=== PATIENT | female | born 1965 | race Caucasian/White ===

== ENCOUNTER 2016-11-30 13:31 | Emergency (ER) | payer SELFPAY ==
[~2016-11-30] VITALS: Ht 165.1 cm; Wt 45.0 kg
[~2016-11-30 13:31] MED LIST: CEPH500C3 PO; PRED50 PO; XANA1TAB6 PO; ZITHTAB PO
[2016-11-30 13:33] VITALS: BP 109/80; PULSE 89; RESP 16; TEMP 98.9; O2SAT 99
--- NOTE | 2016-11-30 13:47 | PD ---
HPI Chief Complaint: Oral / Dental Pain or Problem Time Seen by Provider: 13:44 Travel History International Travel<30 days: No Contact w/Intl Traveler<30days: No Traveled to known affect area: No History of Present Illness HPI 51-year-old smoking female presents emergency Department with left upper jaw pain for the past week. Patient states she had a dental procedure 2 weeks ago with a #14 tooth was removed. She states approximately one week ago she's had developed worsening pain without fever, chills, or swelling. The pain is sensitive to hot and cold. It radiates across her upper jaw. She denies nausea, sore throat, difficulty swallowing, or ear pain. Pain is currently 8-9 out of 10. She has been trying [id number] medications without improvement. She is allergic to Grapefruit. PFSH Past Medical History Anxiety: Yes Depression: Yes Diabetes: No Diminished Hearing: No Fibromyalgia: Yes Kidney Stones: Yes ?: Not : 11 Para: 3 : 8 Past Surgical History Section: Yes (X 3) Genitourinary Surgery: Yes (CYSTOSCOPY WITH STENT PLACED) Gynecologic Surgery: Yes (c-sections) Social History Alcohol Use: Yes Tobacco Use: Yes Substance Use: No Allergies-Medications (Allergen,Severity, Reaction): Coded Allergies: grapefruit (Verified Allergy, Mild, Swelling, 11/30/16) Reported Meds & Prescriptions Reported Meds & Active Scripts Active Zithromax Z-Jamie (Azithromycin) 250 Mg Dspk 250 Mg PO DIRECTED 500 MG (2 tabs) day 1, then 1 tab days 2-5. Prednisone 50 Mg Tab 50 Mg PO DAILY Keflex (Cephalexin Monohydrate) 500 Mg Cap 500 Mg PO Q6 10 Days Reported Xanax 1 mg (Alprazolam) Alprazolam 1 mg Tab 2 Tab PO Q6H PRN Review of Systems Except as stated in HPI: all other systems reviewed are Neg General / Constitutional: No: Fever, Chills Eyes: No: Visual changes HENT: Positive: Dental Difficulties, No: Headaches, Sore Throat, Rhinitis, Rhinorrhea, Congestion, Nosebleed, Neck Stiffness, Neck Pain, Gingival Bleeding , Ear Discharge, Earache Cardiovascular: No: Chest Pain or Discomfort Respiratory: No: Shortness of Breath Gastrointestinal: No: Abdominal Pain Genitourinary: No: Dysuria Musculoskeletal: No: Pain Skin: No Rash Neurologic: No: Weakness Psychiatric: No: Depression Endocrine: No: Polydipsia Hematologic/Lymphatic: No: Easy Bruising Physical Exam Narrative GENERAL: Patient appears in moderate distress. SKIN: Warm and dry. Normal color. Normal turgor. No erythema. No rash. HEAD: Atraumatic. Normocephalic. No significant swelling noted. EYES: Pupils equal and round. No scleral icterus. No injection or drainage. ENT: No nasal bleeding or discharge. Mucous membranes pink and moist. Pharynx is clear. Airway is patent. Patient has poor dental health with multiple caries noted. There is no swelling of the gingiva or posterior pharynx. Airway is patent. NECK: Trachea midline. Supple without significant lymphadenopathy or tenderness. CARDIOVASCULAR: Regular rate and rhythm. No murmurs gallops or rubs appreciated RESPIRATORY: No accessory muscle use. Clear to auscultation. Breath sounds equal bilaterally. MUSCULOSKELETAL: Extremities without clubbing, cyanosis, or edema. No obvious deformities. NEUROLOGICAL: Awake and alert. No obvious cranial nerve deficits. Motor grossly within normal limits. Five out of 5 muscle strength in the arms and legs. Normal speech. PSYCHIATRIC: Appropriate mood and affect; insight and judgment normal. Data Data Last Documented VS Vital Signs Date Time Temp Pulse Resp B/P (MAP) Pulse Ox O2 Delivery O2 Flow Rate FiO2 11/30/16 13:33 98.9 89 16 109/80 (90) 99 MDM Medical Decision Making Medical Screen Exam Complete: Yes Emergency Medical Condition: Yes Differential Diagnosis Dry socket. Dental pain. Nerve pain. Narrative Course Patient is given Toradol 60 mg IM. Patient is given penicillin V, 500 mg now and one every 6 hours for 10 days. Patient is given ibuprofen 600 mg 4 times a day #40. Patient is given acetaminophen 500 mg 2 tabs every 6 hours #60. Patient is given Magic mouthwash every 2 hours as needed #120 mL with 2 refills. Patient to follow-up with dental resources as soon as possible. Patient can return to the ED as symptoms warrant. Diagnosis Primary Impression: Pain, dental Referrals: Dentist Patient Instructions: Dental Abscess (ED), Dental Caries (DC), General Instructions Additional Instructions: Patient is given Toradol 60 mg IM. Patient is given penicillin V, 500 mg now and one every 6 hours for 10 days. Patient is given ibuprofen 600 mg 4 times a day #40. Patient is given acetaminophen 500 mg 2 tabs every 6 hours #60. Patient is given Magic mouthwash every 2 hours as needed #120 mL with 2 refills. Patient to follow-up with dental resources as soon as possible. Patient can return to the ED as symptoms warrant. Med/Other Pt SpecificInfo: Prescription(s) given Disposition: 01 DISCHARGE HOME Condition: Stable Bernard Mccray Nov 30, 2016 13:47
[2016-11-30] MEDS ORDERED: PENICILLIN V POTASSIUM 500 MG TAB PO ONE (14:00)
[2016-11-30] MEDS ORDERED: KETOROLAC TROMETHAMINE 60 MG/2 ML (IM) VIAL IM ONE (14:00)
[2016-11-30] MEDS ORDERED: MAGICADU2 SWISH-SWAL (14:05)
[2016-11-30] MEDS ORDERED: PENI500T PO (14:05)
[2016-11-30] MEDS ORDERED: MAPA500T13 PO (14:05)
[2016-11-30] MEDS ORDERED: IBUP-232 PO (14:05)
== END 2016-11-30 14:20 | disposition home or self-care (01) ==
LOC: NEPK 13:31
DX: K08.89 Other specified disorders of teeth and supporting structures (principal); F41.9 Anxiety disorder, unspecified; F32.9 Major depressive disorder, single episode, unspecified; M79.7 Fibromyalgia; Z87.442 Personal history of urinary calculi; F17.200 Nicotine dependence, unspecified, uncomplicated; Z79.899 Other long term (current) drug therapy
CPT/HCPCS: 96372; 99284; J1885

== ENCOUNTER 2017-01-29 12:02 | Emergency (ER) | payer SELFPAY ==
[~2017-01-29 12:02] MED LIST changes: +IBUP-232 PO; +MAGICADU2 SWISH-SWAL; +MAPA500T13 PO; +PENI500T PO
[2017-01-29 12:14] VITALS: BP 127/86; PULSE 100; RESP 22; TEMP 98.2; O2SAT 100
[2017-01-29 12:17] VITALS: BP 127/86; PULSE 103; RESP 22; TEMP 98.2; O2SAT 100
[2017-01-29] MEDS ORDERED: SODIUM CHLOR 0.9% 1000 ML INJ 1,000 ML IV SCH (12:21)
[2017-01-29] MEDS ORDERED: XANA1TAB2 PO (12:21)
[2017-01-29 12:25] VITALS: O2SAT 100
[2017-01-29] MEDS ORDERED: SODIUM CHLORIDE 0.9% FLUSH 10 ML FLUSH IV FLUSH PRN (12:30)
[2017-01-29] MEDS ORDERED: KETOROLAC TROMETHAMINE 30 MG/ML (IVP) VIAL IVP ONE (12:30)
--- NOTE | 2017-01-29 12:30 | PD ---
HPI . Abdominal pain Chief Complaint: Abdominal Pain Time Seen by Provider: 12:25 Travel History International Travel<30 days: No Contact w/Intl Traveler<30days: No Traveled to known affect area: No History of Present Illness HPI 52-year-old female presents emergency department for evaluation of abdominal pain. Patient arrives via EMS for evaluation. She states the pain started 6 months ago. Patient is crying and anxious and states that her boyfriend has been battling pancreatic cancer and she was unable to get evaluated due to the extensive time it took to provide care for him. He of the [employer]. She states accompanied with abdominal pain she's had alternating diarrhea and constipation. Patient states that there has been some blood in her stool when she's had diarrhea. She believes that it is related to straining when she is constipated causing hemorrhoids. Patient denies any major medical history 1 hepatitis C and anxiety. Patient takes Xanax daily but no other medication. She denies any fever, chills, malaise, shortness breath, chest pain, headache. Patient states she feels lightheaded and dizzy intermittently. Patient states she had a syncopal episode a couple weeks ago but didn't seek care at that time because her boyfriend was still alive and she needed to take care of him. PFSH Past Medical History Anxiety: Yes Depression: Yes Diabetes: No Diminished Hearing: No Fibromyalgia: Yes Kidney Stones: Yes ?: Not : 11 Para: 3 : 8 Past Surgical History Section: Yes (X 3) Genitourinary Surgery: Yes (CYSTOSCOPY WITH STENT PLACED) Gynecologic Surgery: Yes (c-sections) Social History Alcohol Use: Yes Tobacco Use: Yes Substance Use: No Allergies-Medications (Allergen,Severity, Reaction): Coded Allergies: grapefruit (Verified Allergy, Mild, Swelling, 01/29/17) Reported Meds & Prescriptions Reported Meds & Active Scripts Active Bentyl (Dicyclomine HCl) 10 Mg Cap 10 Mg PO TID PRN Zofran Odt (Ondansetron Odt) 4 Mg Tab 4 Mg SL Q6HR PRN Mapap Extra Strength (Acetaminophen) 500 Mg Tab 1,000 Mg PO Q6HR PRN Ibuprofen 600 Mg Tab 600 Mg PO Q6H PRN Prednisone 50 Mg Tab 50 Mg PO DAILY Reported Xanax (Alprazolam) 1 Mg Tab 1 Mg PO Q8H PRN Review of Systems Except as stated in HPI: all other systems reviewed are Neg Physical Exam Narrative GENERAL: Well-nourished, well-developed 52-year-old female patient that is crying and anxious. No acute respiratory distress. SKIN: Focused skin assessment warm/dry. HEAD: Normocephalic. Atraumatic. EYES: No scleral icterus. No injection or drainage. NECK: Supple, trachea midline. No JVD or lymphadenopathy. CARDIOVASCULAR: Regular rate and rhythm without murmurs, gallops, or rubs. RESPIRATORY: Breath sounds equal bilaterally. No accessory muscle use. GASTROINTESTINAL: Abdomen soft, nondistended, left lower quadrant tenderness with palpation. MUSCULOSKELETAL: No cyanosis, or edema. BACK: Nontender without obvious deformity. No CVA tenderness. Data Data Last Documented VS Vital Signs Date Time Temp Pulse Resp B/P (MAP) Pulse Ox O2 Delivery O2 Flow Rate FiO2 01/29/17 14:52 88 18 168/72 (104) 98 01/29/17 12:25 Room Air 01/29/17 12:17 98.2 Orders Orders Complete Blood Count With Diff (01/29/17 12:21) Comprehensive Metabolic Panel (01/29/17 12:21) Lipase (01/29/17 12:21) Prothrombin Time / Inr (Pt) (01/29/17 12:21) Act Partial Throm Time (Ptt) (01/29/17 12:21) Urinalysis - C+S If Indicated (01/29/17 12:21) Ct Abd/Pel W Iv Contrast(Rout) (01/29/17 12:21) Iv Access Insert/Monitor (01/29/17 12:21) Ecg Monitoring (01/29/17 12:21) Oximetry (01/29/17 12:21) Sodium Chlor 0.9% 1000 Ml Inj (Ns 1000 M (01/29/17 12:21) Sodium Chloride 0.9% Flush (Ns Flush) (01/29/17 12:30) Electrocardiogram (01/29/17 12:21) Ketorolac Inj (Toradol Inj) (01/29/17 12:30) Ed Urine Pregnancytest Poc (01/29/17 12:21) Ondansetron Inj (Zofran Inj) (01/29/17 12:45) Iohexol 350 Inj (Omnipaque 350 Inj) (01/29/17 13:29) Ed Discharge Order (01/29/17 14:33) Labs Laboratory Tests Test 01/29/17 12:30 01/29/17 12:50 White Blood Count 7.7 TH/MM3 Red Blood Count 5.05 MIL/MM3 Hemoglobin 15.0 GM/DL Hematocrit 44.4 % Mean Corpuscular Volume 87.9 FL Mean Corpuscular Hemoglobin 29.8 PG Mean Corpuscular Hemoglobin Concent 33.8 % Red Cell Distribution Width 13.4 % Platelet Count 241 TH/MM3 Mean Platelet Volume 7.5 FL Neutrophils (%) (Auto) 65.0 % Lymphocytes (%) (Auto) 25.5 % Monocytes (%) (Auto) 8.3 % Eosinophils (%) (Auto) 0.8 % Basophils (%) (Auto) 0.4 % Neutrophils # (Auto) 5.0 TH/MM3 Lymphocytes # (Auto) 2.0 TH/MM3 Monocytes # (Auto) 0.6 TH/MM3 Eosinophils # (Auto) 0.1 TH/MM3 Basophils # (Auto) 0.0 TH/MM3 CBC Comment DIFF FINAL Differential Comment Prothrombin Time 9.7 SEC Prothromb Time International Ratio 1.0 RATIO Activated Partial Thromboplast Time 25.1 SEC Blood Urea Nitrogen 11 MG/DL Creatinine 0.66 MG/DL Random Glucose 72 MG/DL Total Protein 7.9 GM/DL Albumin 3.6 GM/DL Calcium Level 9.5 MG/DL Alkaline Phosphatase 86 U/L Aspartate Amino Transf (AST/SGOT) 18 U/L Alanine Aminotransferase (ALT/SGPT) 19 U/L Total Bilirubin 0.6 MG/DL Sodium Level 136 MEQ/L Potassium Level 4.1 MEQ/L Chloride Level 102 MEQ/L Carbon Dioxide Level 27.1 MEQ/L Anion Gap 7 MEQ/L Estimat Glomerular Filtration Rate 95 ML/MIN Lipase 79 U/L Urine Color STRAW Urine Turbidity CLEAR Urine pH 7.0 Urine Specific Parrish 1.001 Urine Protein NEG mg/dL Urine Glucose (UA) NEG mg/dL Urine Ketones NEG mg/dL Urine Occult Blood NEG Urine Nitrite NEG Urine Bilirubin NEG Urine Urobilinogen LESS THAN 2.0 MG/DL Urine Leukocyte Esterase NEG Urine Squamous Epithelial Cells <1 /hpf Microscopic Urinalysis Comment CULT NOT INDICATED MDM Medical Decision Making Medical Screen Exam Complete: Yes Emergency Medical Condition: Yes Differential Diagnosis Differential diagnosis include but not limited to IBS, gastritis, malignancy, stress Narrative Course 52 year old female presents to the emergency department via EMS for evaluation of abdominal pain and alternating constipation/diarrhea x 6 months. CBC, CMP, lipase, PT/INR, UA, EKG, abdominal CT ordered and pending. POC preg test ordered and pending. 1L NS bolus, 4mg Zofran and 30mg Toradol IV ordered. Blood work is unremarkable. Abd/Pelvis CT is negative except for probable uterine fibroid. POC preg test negative. Patient is discharged home with prescription for Zofran and Bentyl and instructions to return to the emergency department with any worsening condition but otherwise follow up with primary care. Last Impressions Abdomen/Pelvis CT 01/29/17 1221 Signed Impressions: Service Date/Time: Sunday, January 29, 2017 13:28 - CONCLUSION: Probable fibroid uterus otherwise negative. I don't see inflammatory changes. Reyes Rogel MD FACR Laboratory Tests Test 01/29/17 12:30 01/29/17 12:50 White Blood Count 7.7 TH/MM3 Red Blood Count 5.05 MIL/MM3 Hemoglobin 15.0 GM/DL Hematocrit 44.4 % Mean Corpuscular Volume 87.9 FL Mean Corpuscular Hemoglobin 29.8 PG Mean Corpuscular Hemoglobin Concent 33.8 % Red Cell Distribution Width 13.4 % Platelet Count 241 TH/MM3 Mean Platelet Volume 7.5 FL Neutrophils (%) (Auto) 65.0 % Lymphocytes (%) (Auto) 25.5 % Monocytes (%) (Auto) 8.3 % Eosinophils (%) (Auto) 0.8 % Basophils (%) (Auto) 0.4 % Neutrophils # (Auto) 5.0 TH/MM3 Lymphocytes # (Auto) 2.0 TH/MM3 Monocytes # (Auto) 0.6 TH/MM3 Eosinophils # (Auto) 0.1 TH/MM3 Basophils # (Auto) 0.0 TH/MM3 CBC Comment DIFF FINAL Differential Comment Prothrombin Time 9.7 SEC Prothromb Time International Ratio 1.0 RATIO Activated Partial Thromboplast Time 25.1 SEC Blood Urea Nitrogen 11 MG/DL Creatinine 0.66 MG/DL Random Glucose 72 MG/DL Total Protein 7.9 GM/DL Albumin 3.6 GM/DL Calcium Level 9.5 MG/DL Alkaline Phosphatase 86 U/L Aspartate Amino Transf (AST/SGOT) 18 U/L Alanine Aminotransferase (ALT/SGPT) 19 U/L Total Bilirubin 0.6 MG/DL Sodium Level 136 MEQ/L Potassium Level 4.1 MEQ/L Chloride Level 102 MEQ/L Carbon Dioxide Level 27.1 MEQ/L Anion Gap 7 MEQ/L Estimat Glomerular Filtration Rate 95 ML/MIN Lipase 79 U/L Urine Color STRAW Urine Turbidity CLEAR Urine pH 7.0 Urine Specific Parrish 1.001 Urine Protein NEG mg/dL Urine Glucose (UA) NEG mg/dL Urine Ketones NEG mg/dL Urine Occult Blood NEG Urine Nitrite NEG Urine Bilirubin NEG Urine Urobilinogen LESS THAN 2.0 MG/DL Urine Leukocyte Esterase NEG Urine Squamous Epithelial Cells <1 /hpf Microscopic Urinalysis Comment CULT NOT INDICATED Diagnosis Primary Impression: Abdominal pain Qualified Codes: R10.9 - Unspecified abdominal pain Referrals: Primary Care Physician Patient Instructions: Abdominal Pain (ED), General Instructions Additional Instructions: Please return to emergency department if your symptoms return or worsen. Follow up with your primary care provider. Take medications as prescribed. Med/Other Pt SpecificInfo: Prescription(s) given Scripts Dicyclomine (Bentyl) 10 Mg Cap 10 MG PO TID Y for Bowel Management, #15 CAP 0 Refills Prov: Sherlyn Knowles 01/29/17 Ondansetron Odt (Zofran Odt) 4 Mg Tab 4 MG SL Q6HR Y for Nausea/Vomiting, #10 TAB 0 Refills Prov: Sherlyn Knowles 01/29/17 Disposition: 01 DISCHARGE HOME Condition: Stable Sherlyn Knowles Jan 29, 2017 12:30
[2017-01-29] MEDS ORDERED: ONDANSETRON HCL 4 MG/2 ML VIAL IV PUSH ONE (12:45)
[2017-01-29] MEDS ORDERED: IOHEXOL 350 MG/ML 10 ML VIAL (for RAD DIAG) IVCONTRAST ONE (13:29)
[2017-01-29 13:32] LABS: BLOOD, URINE NEG (NEG); GLUCOSE,URINE NEG (NEG); KETONE, URINE NEG (NEG); NITRITE,URINE NEG (NEG); SQUAMOUS EPITHELIAL CELL URINE <1 /hpf (0-5)
[2017-01-29 13:33] LABS: BASOPHIL % 0.4 % (0.0-2.0); EOSINOPHIL # 0.1 TH/MM3 (0-0.4); EOSINOPHIL % 0.8 % (0.0-4.0); HEMATOCRIT 44.4 % (35.0-46.0); HEMO FLAGS DIFF FINAL; LYMPH % 25.5 % (9.0-44.0); MEAN CELL VOLUME 87.9 FL (80.0-100.0); MEAN CORPUSCULAR HEMOGLOBIN 29.8 PG (27.0-34.0); MEAN CORPUSCULAR HGB CONC 33.8 % (32.0-36.0); MONO % 8.3 % (0.0-8.0); PLATELET COUNT 241 TH/MM3 (150-450); RED BLOOD COUNT 5.05 MIL/MM3 (4.00-5.30); RED CELL DISTRIBUTION WIDTH 13.4 % (11.6-17.2); WHITE BLOOD COUNT 7.7 TH/MM3 (4.0-11.0)
[2017-01-29 13:35] LABS: COMMENT (UR) CULT NOT INDICATED; CULTURE IF INDICATED CULT NOT INDICATED; URINE COLOR STRAW (YELLW/STRAW)
[2017-01-29 13:42] LABS: APTT (PATIENT) 25.1 SEC (24.3-30.1); PROTHROMBIN TIME - PATIENT 9.7 SEC (9.8-11.6)
[2017-01-29 13:49] VITALS: RESP 18
--- NOTE | 2017-01-29 13:49 | RADRPT ---
EXAM DATE/TIME: 01/29/2017 13:28 [facility] COMPARISON: No previous studies available for comparison. INDICATIONS : Lower abdomen pain IV CONTRAST: 96 cc Omnipaque 350 (iohexol) IV ORAL CONTRAST: No oral contrast ingested. RADIATION DOSE: 4.51 CTDIvol (mGy) MEDICAL HISTORY : Hepatitis C. SURGICAL HISTORY : section. ENCOUNTER: Initial ACUITY: 4 - 6 months PAIN SCALE: 10/10 LOCATION: lower quadrant TECHNIQUE: Volumetric scanning of the abdomen and pelvis was performed. Using automated exposure control and ad justment of the mA and/or kV according to patient size, radiation dose was kept as low as reasonably achievable to obtain optimal diagnostic quality images. DICOM format image data is available electro nically for review and comparison. FINDINGS: Mild emphysematous changes both lung base is The liver, gallbladder and pancreas are unremarkable. Spleen, adrenals and kidneys are unremarkable There is no ascites. There is no adenopathy. In the pelvis the uterus is prominent suggesting fibroids. The bladder is prominent. Region of the cecum and terminal ileum unremarkable There is no evidence for diverticulitis or inflammatory changes There is no free fluid CONCLUSION: Probable fibroid uterus otherwise negative. I don't see inflammatory changes. Reyes Rogel MD FACR on January 29, 2017 at 13:45 Board Certified Radiologist. This report was verified electronically.
[2017-01-29 13:59] LABS: ALT (GPT) 19 U/L (10-53); ANION GAP 7 MEQ/L (5-15); AST (GOT) 18 U/L (15-37); BICARBONATE 27.1 MEQ/L (21.0-32.0); BLOOD UREA NITROGEN 11 MG/DL (7-18); CHLORIDE 102 MEQ/L (98-107); GLOMERULAR FILTRATION RATE 95 ML/MIN (>89); POTASSIUM 4.1 MEQ/L (3.5-5.1); SODIUM (NA) 136 MEQ/L (136-145)
[2017-01-29 14:00] LABS: ALKALINE PHOSPHATASE 86 U/L (45-117); TOTAL BILIRUBIN ADULT 0.6 MG/DL (0.2-1.0)
[2017-01-29] MEDS ORDERED: ZOFR4TAB3 SL (14:33)
[2017-01-29] MEDS ORDERED: DICY10 PO (14:33)
[2017-01-29 14:52] VITALS: BP 168/72
--- NOTE | 2017-01-29 14:56 | PD ---
Data Data Last Documented VS Vital Signs Date Time Temp Pulse Resp B/P (MAP) Pulse Ox O2 Delivery O2 Flow Rate FiO2 01/29/17 14:52 88 18 168/72 (104) 98 01/29/17 12:25 Room Air 01/29/17 12:17 98.2 Orders Orders Complete Blood Count With Diff (01/29/17 12:21) Comprehensive Metabolic Panel (01/29/17 12:21) Lipase (01/29/17 12:21) Prothrombin Time / Inr (Pt) (01/29/17 12:21) Act Partial Throm Time (Ptt) (01/29/17 12:21) Urinalysis - C+S If Indicated (01/29/17 12:21) Ct Abd/Pel W Iv Contrast(Rout) (01/29/17 12:21) Iv Access Insert/Monitor (01/29/17 12:21) Ecg Monitoring (01/29/17 12:21) Oximetry (01/29/17 12:21) Sodium Chlor 0.9% 1000 Ml Inj (Ns 1000 M (01/29/17 12:21) Sodium Chloride 0.9% Flush (Ns Flush) (01/29/17 12:30) Electrocardiogram (01/29/17 12:21) Ketorolac Inj (Toradol Inj) (01/29/17 12:30) Ed Urine Pregnancytest Poc (01/29/17 12:21) Ondansetron Inj (Zofran Inj) (01/29/17 12:45) Iohexol 350 Inj (Omnipaque 350 Inj) (01/29/17 13:29) Ed Discharge Order (01/29/17 14:33) Labs Laboratory Tests Test 01/29/17 12:30 01/29/17 12:50 White Blood Count 7.7 TH/MM3 Red Blood Count 5.05 MIL/MM3 Hemoglobin 15.0 GM/DL Hematocrit 44.4 % Mean Corpuscular Volume 87.9 FL Mean Corpuscular Hemoglobin 29.8 PG Mean Corpuscular Hemoglobin Concent 33.8 % Red Cell Distribution Width 13.4 % Platelet Count 241 TH/MM3 Mean Platelet Volume 7.5 FL Neutrophils (%) (Auto) 65.0 % Lymphocytes (%) (Auto) 25.5 % Monocytes (%) (Auto) 8.3 % Eosinophils (%) (Auto) 0.8 % Basophils (%) (Auto) 0.4 % Neutrophils # (Auto) 5.0 TH/MM3 Lymphocytes # (Auto) 2.0 TH/MM3 Monocytes # (Auto) 0.6 TH/MM3 Eosinophils # (Auto) 0.1 TH/MM3 Basophils # (Auto) 0.0 TH/MM3 CBC Comment DIFF FINAL Differential Comment Prothrombin Time 9.7 SEC Prothromb Time International Ratio 1.0 RATIO Activated Partial Thromboplast Time 25.1 SEC Blood Urea Nitrogen 11 MG/DL Creatinine 0.66 MG/DL Random Glucose 72 MG/DL Total Protein 7.9 GM/DL Albumin 3.6 GM/DL Calcium Level 9.5 MG/DL Alkaline Phosphatase 86 U/L Aspartate Amino Transf (AST/SGOT) 18 U/L Alanine Aminotransferase (ALT/SGPT) 19 U/L Total Bilirubin 0.6 MG/DL Sodium Level 136 MEQ/L Potassium Level 4.1 MEQ/L Chloride Level 102 MEQ/L Carbon Dioxide Level 27.1 MEQ/L Anion Gap 7 MEQ/L Estimat Glomerular Filtration Rate 95 ML/MIN Lipase 79 U/L Urine Color STRAW Urine Turbidity CLEAR Urine pH 7.0 Urine Specific [place] 1.001 Urine Protein NEG mg/dL Urine Glucose (UA) NEG mg/dL Urine Ketones NEG mg/dL Urine Occult Blood NEG Urine Nitrite NEG Urine Bilirubin NEG Urine Urobilinogen LESS THAN 2.0 MG/DL Urine Leukocyte Esterase NEG Urine Squamous Epithelial Cells <1 /hpf Microscopic Urinalysis Comment CULT NOT INDICATED MDM Supervised Visit with MORGAN: Yes Narrative Course The history, exam, and medical decision-making in the associated mid-level provider note were completed with my assistance. I reviewed and agree with the findings presented. I attest that I had a [id number] encounter with the patient on the same day, and personally performed and documented my assessment and findings in the medical record. *My assessment and Findings: 52 year-old woman, patient with months worth of abdominal pain and intermittent constipation and diarrhea alternating, multiple social stressors, no history of abdominal surgeries suffer C-sections, mild diffuse abdominal tenderness. No rebound or guarding. CT scans in the results unremarkable. Recommend outpatient follow-up and supportive treatment. Diagnosis Primary Impression: Abdominal pain Referrals: Primary Care Physician Patient Instructions: General Instructions, Abdominal Pain (ED) Departure Forms: Tests/Procedures Additional Instruction: Please return to emergency department if your symptoms return or worsen. Follow up with your primary care provider. Take medications as prescribed. Scripts Dicyclomine (Bentyl) 10 Mg Cap 10 MG PO TID Y for Bowel Management, #15 CAP 0 Refills Prov: Sherlyn Knowles 01/29/17 Ondansetron Odt (Zofran Odt) 4 Mg Tab 4 MG SL Q6HR Y for Nausea/Vomiting, #10 TAB 0 Refills Prov: Sherlyn Knowles 01/29/17 Disposition: 01 DISCHARGE HOME Condition: Stable David Rea MD Jan 29, 2017 14:56
--- NOTE | 2017-01-29 21:59 | EKG ---
Date Performed: 01/29/2017 Time Performed: 12:55:05 PTAGE: 52 years EKG: Sinus rhythm POSSIBLE RIGHT VENTRICULAR CONDUCTION DELAY BORDERLINE ECG NO PREVIOUS TRACING DOCTOR: Rea Ayers Interpretating Date/Time 01/29/2017 21:57:47
== END 2017-01-29 14:53 | disposition home or self-care (01) ==
LOC: NEPC 12:02
DX: R10.9 Unspecified abdominal pain (principal); K59.00 Constipation, unspecified; R19.7 Diarrhea, unspecified; R42 Dizziness and giddiness; F41.9 Anxiety disorder, unspecified; F32.9 Major depressive disorder, single episode, unspecified; M79.7 Fibromyalgia; Z87.442 Personal history of urinary calculi; Z72.0 Tobacco use
CPT/HCPCS: 74177; 80053; 81001; 83690; 84703; 85025; 85610; 85730; 93005; 96361; 96374; 96375; 99285; J1885; J2405; J7030; Q9967

== ENCOUNTER 2017-07-20 11:45 | Emergency (ER) | payer SELFPAY ==
[~2017-07-20 11:45] MED LIST changes: -CEPH500C3 PO; -IBUP-232 PO; -MAGICADU2 SWISH-SWAL; -MAPA500T13 PO; -PENI500T PO; -PRED50 PO; +XANA1TAB2 PO; -XANA1TAB6 PO; -ZITHTAB PO
[2017-07-20 11:48] VITALS: BP 107/50; PULSE 103; RESP 20; TEMP 98.6; O2SAT 98
[2017-07-20] MEDS ORDERED: BACT800T5 PO (12:27)
[2017-07-20] MEDS ORDERED: SULFAMETHOXAZOLE-TRIMETHOPRIM DS 800-160 MG TAB PO ONE (12:30)
--- NOTE | 2017-07-20 12:35 | PD ---
HPI Chief Complaint: Skin Problem Time Seen by Provider: 12:19 Travel History International Travel<30 days: No Contact w/Intl Traveler<30days: No Traveled to known affect area: No History of Present Illness HPI 52-year-old female presents emergency department for evaluation of a lesion to her left buttocks. Says that she noticed this 4 days ago and thought this was a spider bite. She does not recall a spider but was concerned because of the "hole" in the lesion. She denies fevers or chills. Says the area is tender to palpation, no radiation of pain. Denies exudate. She has no other complaints today. PFSH Past Medical History Anxiety: Yes Depression: Yes Diabetes: No Diminished Hearing: No Fibromyalgia: Yes Kidney Stones: Yes ?: Not Menopausal: Yes : 11 Para: 3 : 8 Past Surgical History Section: Yes (X 3) Genitourinary Surgery: Yes (CYSTOSCOPY WITH STENT PLACED) Gynecologic Surgery: Yes (c-sections) Social History Alcohol Use: No Tobacco Use: Yes (1 PPD) Substance Use: No Allergies-Medications (Allergen,Severity, Reaction): Coded Allergies: grapefruit (Verified Allergy, Mild, Swelling, 03/24/17) Reported Meds & Prescriptions Reported Meds & Active Scripts Active Bactrim DS (Sulfamethoxazole-Trimethoprim) 800-160 Mg Tab 1 Tab PO BID Reported Xanax (Alprazolam) 1 Mg Tab 1 Mg PO Q8H PRN Review of Systems Except as stated in HPI: all other systems reviewed are Neg Physical Exam Narrative GENERAL: Well-developed, well-nourished, slightly anxious SKIN: Focused skin assessment warm/dry. Left buttocks-area of induration approximately 5 mm with extension of erythema approximately 1 cm, mildly tender palpation. Central puncta. No exudate. No lymph idiopathic spread. HEAD: Atraumatic. Normocephalic. EYES: No scleral icterus. No injection or drainage. ENT: No nasal bleeding or discharge. Mucous membranes pink and moist. NECK: Trachea midline. No JVD. CARDIOVASCULAR: Regular rate and rhythm. No murmur appreciated. RESPIRATORY: No accessory muscle use. Clear to auscultation. Breath sounds equal bilaterally. MUSCULOSKELETAL: No obvious deformities. No clubbing. No cyanosis. No edema. NEUROLOGICAL: Awake and alert. No obvious cranial nerve deficits. Motor grossly within normal limits. Normal speech. PSYCHIATRIC: Appropriate mood and affect; insight and judgment normal. Data Data Last Documented VS Vital Signs Date Time Temp Pulse Resp B/P (MAP) Pulse Ox O2 Delivery O2 Flow Rate FiO2 07/20/17 11:48 98.6 103 20 107/50 (69) 98 Orders Orders Sulfamet-Trimeth Ds 800-160 Mg (Bactrim (07/20/17 12:30) Ed Discharge Order (07/20/17 12:49) [facility] Medical Decision Making Medical Screen Exam Complete: Yes Emergency Medical Condition: Yes Differential Diagnosis Left buttock cellulitis, abscess, erysipelas, folliculitis Narrative Course 52-year-old female presents emergency department for evaluation of a lesion to her left buttocks. Says that she noticed this 4 days ago and thought this was a spider bite. She does not recall a spider but was concerned because of the "hole" in the lesion. She denies fevers or chills. Says the area is tender to palpation, no radiation of pain. Denies exudate. She has no other complaints today. Vital signs are stable. Physical exam findings most consistent with folliculitis versus abscess versus cellulitis. The area is rather indurated and I do not feel any areas of fluctuance amenable to an I&D. Patient will be discharged with Bactrim. Her first dose of Bactrim administered emergency department today. Warm compresses. She is advised to follow-up with primary care physician. Return for worsening or persistent symptoms. Diagnosis Primary Impression: Cellulitis and abscess of buttock Referrals: [facility] Primary Care Physician Patient Instructions: Cellulitis (ED), General Instructions Additional Instructions: Use warm compresses 4 times daily for 15 minutes at a time. Take all antibiotics as prescribed. If the wound worsens over the next 2 days return to the emergency department for evaluation. Follow-up with the primary care physician within 2-3 days. Scripts Sulfamethoxazole-Trimethoprim (Bactrim DS) 800-160 Mg Tab 1 TAB PO BID for Infection, #14 TAB 0 Refills Prov: David Rea MD 07/20/17 Disposition: 01 DISCHARGE HOME Condition: Stable Jodie Stone July 20, 2017 12:35
== END 2017-07-20 13:04 | disposition home or self-care (01) ==
LOC: NEPD 11:45
DX: L02.31 Cutaneous abscess of buttock (principal)
CPT/HCPCS: 99283

== ENCOUNTER 2017-07-22 06:04 | Emergency (ER) | payer SELFPAY ==
[~2017-07-22] VITALS: Ht 172.7 cm; Wt 44.0 kg
[~2017-07-22 06:04] MED LIST changes: +BACT800T5 PO
[2017-07-22 06:16] VITALS: BP 99/55; PULSE 89; RESP 20; TEMP 97.7; O2SAT 96
--- NOTE | 2017-07-22 07:16 | PD ---
HPI Chief Complaint: Skin Problem Time Seen by Provider: 06:58 Travel History International Travel<30 days: No Contact w/Intl Traveler<30days: No Traveled to known affect area: No History of Present Illness HPI 52y anxious female returns to the emergency department for evaluation of a lesion to the left buttocks. Says that the area has become dark in color and remains painful so she decided to return for concern of it being a spider bite. Says she has been taking Bactrim as directed. She denies fevers or chills. Patient again requests me to open up the area to determine whether or not there is pus. The area is TTP, moderate in severity, nonradiating. PFSH Past Medical History Anxiety: Yes Depression: Yes Diabetes: No Diminished Hearing: No Fibromyalgia: Yes Kidney Stones: Yes ?: Not LMP: 2015 Menopausal: Yes : 11 Para: 3 : 8 Past Surgical History Section: Yes (X 3) Genitourinary Surgery: Yes (CYSTOSCOPY WITH STENT PLACED) Gynecologic Surgery: Yes (c-sections) Social History Alcohol Use: No Tobacco Use: Yes (1 PPD) Substance Use: No Allergies-Medications (Allergen,Severity, Reaction): Coded Allergies: grapefruit (Verified Allergy, Mild, Swelling, 03/24/17) Reported Meds & Prescriptions Reported Meds & Active Scripts Active Penicillin V Potassium 500 Mg Tab 500 Mg PO Q8H 7 Days Bactrim DS (Sulfamethoxazole-Trimethoprim) 800-160 Mg Tab 1 Tab PO BID Reported Xanax (Alprazolam) 1 Mg Tab 1 Mg PO Q8H PRN Review of Systems Except as stated in HPI: all other systems reviewed are Neg Physical Exam Narrative GENERAL: Well-nourished, well-developed patient, in NAD SKIN: Focused skin assessment warm/dry. No rashes or lesions. left buttocks- area of erythema with central induration with purpura colored central area. Area continues to be indurated without any fluctuance. HEAD: Normocephalic. Atraumatic. EYES: No scleral icterus. No injection or drainage. NECK: Supple, trachea midline. No JVD or lymphadenopathy. No meningismus. CARDIOVASCULAR: Regular rate and rhythm without murmurs, gallops, or rubs. RESPIRATORY: Breath sounds equal bilaterally. No accessory muscle use. No wheezes, rales, or rhonchi MUSCULOSKELETAL: No cyanosis, or edema. BACK: Nontender without obvious deformity. No CVA tenderness. Data Data Last Documented VS Vital Signs Date Time Temp Pulse Resp B/P (MAP) Pulse Ox O2 Delivery O2 Flow Rate FiO2 07/22/17 06:16 97.7 89 20 99/55 (70) 96 Orders Orders Ed Discharge Order (07/22/17 07:44) MDM Medical Decision Making Medical Screen Exam Complete: Yes Emergency Medical Condition: Yes Differential Diagnosis Abscess, erysipelas, cellulitis Narrative Course 52-year-old female presents emergency department for the second time evaluation of the lesion to her left buttocks. Patient says that the lesion has developed darkness in the central area and continues to be painful. She denies spread of the erythema. I actually saw this patient's upon initial presentation and the change from the initial presentation to now would be the darkening of the central area. There is still induration. No extension of erythema compared to previous exam. We discussed the risks versus benefits of incision and drainage versus needle aspiration. Advised that it was not indicated because the area was hard and I did not feel any areas of fluctuance. I once again reassured the patient. I once again gave her instructions regarding care. Patient is to continue Bactrim. Patient says she is unable to afford medication unless it is free. Will prescribe penicillin. Advised her to follow-up with [facility] for her care. Diagnosis Primary Impression: Abscess Referrals: [facility] [address] Additional Instructions: Take all medications as prescribed. Continue Bactrim. Start Keflex. Use warm compresses or warm rags 3-4 times daily for 15 minutes at a time to reduce the swelling and redness. Scripts Penicillin V Potassium (Penicillin V Potassium) 500 Mg Tab 500 MG PO Q8H for Infection for 7 Days, #21 TAB 0 Refills Prov: Jerome Blair MD 07/22/17 Disposition: 01 DISCHARGE HOME Condition: Stable Jodie Stone July 22, 2017 07:16
[2017-07-22] MEDS ORDERED: PENI500T PO (07:44)
== END 2017-07-22 07:54 | disposition home or self-care (01) ==
LOC: NEPD 06:04
DX: L02.31 Cutaneous abscess of buttock (principal); F41.9 Anxiety disorder, unspecified; F32.9 Major depressive disorder, single episode, unspecified; M79.7 Fibromyalgia; Z87.442 Personal history of urinary calculi; F17.200 Nicotine dependence, unspecified, uncomplicated; Z79.899 Other long term (current) drug therapy
CPT/HCPCS: 99281

== ENCOUNTER 2017-08-09 12:23 | Emergency (ER) | payer SELFPAY ==
[~2017-08-09] VITALS: Ht 165.1 cm; Wt 50.0 kg
[~2017-08-09 12:23] MED LIST changes: +PENI500T PO
[2017-08-09 12:34] VITALS: BP 116/73; PULSE 94; RESP 20; TEMP 97.2; O2SAT 99
--- NOTE | 2017-08-09 13:29 | PD ---
HPI Chief Complaint: ENT Complaint Time Seen by Provider: 13:10 Travel History International Travel<30 days: No Contact w/Intl Traveler<30days: No Traveled to known affect area: No History of Present Illness HPI Is a 52-year-old woman who presents to the emergency department complaining of pain in her throat painful swallowing and fevers and chills ongoing for couple days. She states symptoms started fairly abruptly 3 nights ago. Symptoms been persistent. She denies cough cold or other associated symptoms. She does smoke. Denies any history of problems prior to this. No other complaints. History Past Medical History Narrative Medical Anxiety depression Fibromyalgia Menopausal: Yes : 11 Para: 3 Social History Alcohol Use: Yes (weekly) Tobacco Use: Yes (1 PPD) Allergies-Medications (Allergen,Severity, Reaction): Coded Allergies: grapefruit (Verified Allergy, Mild, Swelling, 08/09/17) Reported Meds & Prescriptions Reported Meds & Active Scripts Active Reported Xanax (Alprazolam) 1 Mg Tab 1 Mg PO Q8H PRN Review of Systems Except as stated in HPI: all other systems reviewed are Neg Physical Exam Narrative GENERAL: A 52-year-old woman, no acute distress. SKIN: Focused skin assessment warm/dry. HEAD: Atraumatic. Normocephalic. EYES: Pupils equal and round. No scleral icterus. No injection or drainage. ENT: No nasal bleeding or discharge. Mucous membranes pink and moist. No enlarged lymph nodes. No significant erythema. NECK: Trachea midline. No JVD. Little bit of tenderness the very top of the cervical chain, minimal adenopathy though no large palpable lymph nodes. There is no clear myositis or other muscular implement. Patient able to range neck without difficulty. There is no meningeal findings or evidence of retropharyngeal abscess or impairment. CARDIOVASCULAR: Regular rate and rhythm. No murmur appreciated. RESPIRATORY: No accessory muscle use. Clear to auscultation. Breath sounds equal bilaterally. GASTROINTESTINAL: Abdomen soft, non-tender, nondistended. Hepatic and splenic margins not palpable. MUSCULOSKELETAL: No obvious deformities. No clubbing. No cyanosis. No edema. NEUROLOGICAL: Awake and alert. No obvious cranial nerve deficits. Motor grossly within normal limits. Normal speech. PSYCHIATRIC: Appropriate mood and affect; insight and judgment normal. Data Data Last Documented VS Vital Signs Date Time Temp Pulse Resp B/P (MAP) Pulse Ox O2 Delivery O2 Flow Rate FiO2 08/09/17 12:34 97.2 94 20 116/73 (87) 99 Orders Orders Penicillin G Benzathine Inj (Bicillin L- (08/09/17 13:30) Dexamethasone (Decadron) (08/09/17 13:30) MDM Medical Decision Making Medical Screen Exam Complete: Yes Emergency Medical Condition: Yes Differential Diagnosis Tonsillitis, pharyngitis, myositis, retropharyngeal abscess, strain or sprain, other Narrative Course Medical decision making Is a 52-year-old woman presents to the emergency department complaining of sore throat fevers. She looks well. The throat exam itself is pretty unremarkable she appears to have some tender adenopathy in the anterior chain. This could be adenitis. No recent cat exposure. She looks well does not have evidence of retropharyngeal abscess or the like on exam. At this point would recommend a dose of steroids to help with the adenopathy and will give her a shot of Bicillin. Return for any worsening symptoms difficulty swallowing. Diagnosis Primary Impression: Cervical adenitis Additional Instructions: Return to the emergency department for any worsening trouble swallowing, any trouble breathing, any worsening swelling, or any other new or worsening symptoms. Med/Other Pt SpecificInfo: No Change to Meds Disposition: 01 DISCHARGE HOME Condition: Stable David Rea MD Aug 09, 2017 13:29
[2017-08-09] MEDS ORDERED: PENICILLIN G BENZATHINE 1,200,000 UNITS/2 ML SYRINGE IM ONE (13:30)
[2017-08-09] MEDS ORDERED: DEXAMETHASONE 4 MG TAB PO ONE (13:30)
== END 2017-08-09 13:45 | disposition home or self-care (01) ==
LOC: NEPD 12:23
DX: I88.9 Nonspecific lymphadenitis, unspecified (principal); F17.210 Nicotine dependence, cigarettes, uncomplicated; F41.8 Other specified anxiety disorders
CPT/HCPCS: 96372; 99283; J0561; J8540

== ENCOUNTER 2017-08-19 14:59 | Emergency (ER) | payer SELFPAY ==
[~2017-08-19 14:59] MED LIST changes: -BACT800T5 PO; -PENI500T PO
[2017-08-19 15:16] VITALS: BP 105/67; PULSE 90; RESP 18; TEMP 97.8; O2SAT 99
--- NOTE | 2017-08-19 15:35 | PD ---
HPI Chief Complaint: Alcohol/Drug Intoxication Time Seen by Provider: 15:22 Travel History International Travel<30 days: No Contact w/Intl Traveler<30days: No Traveled to known affect area: No History of Present Illness HPI 52 year old female presents to the emergency department via EMS for evaluation after a trip and fall and abrasion to her right knee. According to the nurse taking care of her, EMS said that the patient had been intoxicated. However, the patient denies having any alcohol today. She states she tripped outside of a bar last night, but denies drinking at that time too. She has an abrasion to the right anterior knee. She states her tetanus immunization is up-to-date. The patient denies any pain or complaints at this time. No head injury or LOC. She denies any neck pain or back pain. No chest pain or abdominal pain. No vomiting. Patient is ambulatory with a steady gait. She is alert and oriented to person, place, time answers my questions appropriately. She states that she is here to see her boyfriend who has cancer. She has no other symptoms or complaints at this time. She denies any thoughts of hurting herself or anybody else. PFSH Past Medical History Anxiety: Yes Depression: Yes Diabetes: No Diminished Hearing: No Fibromyalgia: Yes Hepatitis: Yes (C) Kidney Stones: Yes Neurologic: Yes (bells palsy) Menopausal: Yes : 11 Para: 3 : 8 Past Surgical History Section: Yes (X 3) Genitourinary Surgery: Yes (CYSTOSCOPY WITH STENT PLACED) Gynecologic Surgery: Yes (c-sections) Social History Alcohol Use: Yes (weekly) Tobacco Use: Yes (1 PPD) Substance Use: No Allergies-Medications (Allergen,Severity, Reaction): Coded Allergies: grapefruit (Verified Allergy, Mild, Swelling, 08/09/17) Reported Meds & Prescriptions Reported Meds & Active Scripts Active Reported Xanax (Alprazolam) 1 Mg Tab 1 Mg PO Q8H PRN Review of Systems Except as stated in HPI: all other systems reviewed are Neg Physical Exam Narrative GENERAL: Well-nourished, well-developed female patient, afebrile. Patient is ambulatory with a steady gait. She is alert oriented to person, place, time. SKIN: Focused skin assessment warm/dry. Patient has a superficial abrasion to the right anterior knee. HEAD: Normocephalic. Atraumatic. EYES: No scleral icterus. No injection or drainage. NECK: Supple, trachea midline. No JVD or lymphadenopathy. CARDIOVASCULAR: Regular rate and rhythm without murmurs, gallops, or rubs. Right pedal pulses 2+. RESPIRATORY: Breath sounds equal bilaterally. No accessory muscle use. Lung sounds are clear to auscultation. GASTROINTESTINAL: Abdomen soft, non-tender, nondistended. MUSCULOSKELETAL: No cyanosis, or edema. No bony point tenderness over right knee. She has full flexion-extension without pain or stiffness. BACK: Nontender without obvious deformity. No CVA tenderness. Data Data Last Documented VS Vital Signs Date Time Temp Pulse Resp B/P (MAP) Pulse Ox O2 Delivery O2 Flow Rate FiO2 08/19/17 15:16 97.8 90 18 105/67 (80) 99 MDM Medical Decision Making Medical Screen Exam Complete: Yes Emergency Medical Condition: Yes Medical Record Reviewed: Yes Differential Diagnosis Fall versus contusion versus abrasion Narrative Course 52-year-old female presents to the emergency department via EMS for evaluation after fall and abrasion to the right knee. According to the nurse, EMS stated the patient was intoxicated. The patient denies drinking any alcohol today. She is ambulatory with a steady gait. She is alert oriented to person, place, time. She has no complaints and denies any pain. She does not want any intervention at this time. She states that she would like to see her boyfriend who she states has cancer and is apparently here. The patient was discharged in stable condition with instructions, including return instructions and follow up instructions. Diagnosis Primary Impression: Abrasion of right knee Qualified Codes: S80.211A - Abrasion, right knee, initial encounter Referrals: Primary Care Physician call for appointment Patient Instructions: Abrasion (ED), General Instructions Additional Instructions: Clean abrasion twice daily with soap and water and apply [id number] antibiotic ointment. Follow-up with a primary care physician. Return to the emergency department for any acute worsening of symptoms. Med/Other Pt SpecificInfo: No Change to Meds Disposition: 01 DISCHARGE HOME Condition: Stable Taryn Delatorre FAWAD Aug 19, 2017 15:35
== END 2017-08-19 15:41 | disposition home or self-care (01) ==
LOC: NEDAMB 14:59
DX: S80.211A Abrasion, right knee, initial encounter (principal); F17.200 Nicotine dependence, unspecified, uncomplicated; W01.0XXA Fall on same level from slipping, tripping and stumbling without subsequent striking against object, initial encounter
CPT/HCPCS: 99281